=== PATIENT | female | born 1945 | race Asian ===

== ENCOUNTER → 2024-01-24 10:20 | Outpatient (REF) | payer MEDICARE, SELFPAY ==
[2024-01-24 12:40] LABS: ALT (SGPT) 37 U/L (0-35); AST (SGOT) 36 U/L (14-36); Albumin 4.6 g/dl (3.5-5.0); Alkaline Phosphatase 81 U/L (38-126); Blood Urea Nitrogen 14 mg/dl (7-17); Calcium 10.1 mg/dl (8.4-10.2); Carbon Dioxide 27 mmol/L (22-30); Chloride 103 mmol/L (98-107); Glucose 213 mg/dl (70-99); HDL Cholesterol 50 mg/dl; LDL Cholesterol, Calculated 115 mg/dl; Potassium 4.2 mmol/L (3.5-5.1); Sodium 137 mmol/L (135-145); Total Bilirubin 1.1 mg/dl (0.2-1.3); Total Cholesterol 193 mg/dl (50-199); Total Protein 7.6 g/dl (6.3-8.2); Triglyceride 142 mg/dl (10-149); Very Low Density Lipoprotein 28 mg/dl (0-30); eGFR > 60.00
[2024-01-24 13:19] LABS: Microalbumin, Random Urine 3.6 mg/dl (0.6-1.7); Microalbumin/creatinine Ratio 21.1 mg/g
[2024-01-24 14:56] LABS: Glycohemoglobin (HgbA1c) 10.3 % (4.0-5.6)
== END ==
LOC: HWLAB 10:20
PROVIDERS: ATTENDING PHYSICIAN Nurse Practitioner
DX: E11.9 Type 2 diabetes mellitus without complications (principal); R80.9 Proteinuria, unspecified; E78.2 Mixed hyperlipidemia; R79.89 Other specified abnormal findings of blood chemistry
CPT/HCPCS: 36415; 80053; 80061; 82043; 82570; 83036

== ENCOUNTER → 2024-05-01 11:31 | Outpatient (REF) | payer MEDICARE, SELFPAY | LOC: HWLAB 11:31 | PROVIDERS: ATTENDING PHYSICIAN Nurse Practitioner | DX: E11.9 Type 2 diabetes mellitus without complications (principal) | CPT/HCPCS: 83036 ==

== ENCOUNTER → 2024-07-16 12:31 | Outpatient (REF) | payer MEDICARE, SELFPAY | LOC: HWRAD 12:31 | DX: M25.512 Pain in left shoulder (principal); M25.522 Pain in left elbow | CPT/HCPCS: 73030; 73080 ==

== ENCOUNTER → 2024-12-07 10:46 | Outpatient (REF) | payer MEDICARE, SELFPAY ==
[2024-12-07 16:28] LABS: % Basophils 1.1 % (0-2); % Eosinophils 1.2 % (0-6); % Immature Granulocytes 0.4 % (0-0.5); % Lymphocytes 21.1 % (20.5-51.1); % Monocytes 6.9 % (1.7-9.3); % Neutrophils 69.3 % (42.2-75.2); Absolute Basophils 0.1 10^3/uL (0-0.2); Absolute Eosinophils 0.1 10^3/uL (0-0.7); Absolute Lymphocytes 1.7 10^3/uL (1.2-3.4); Absolute Monocytes 0.6 10^3/uL (0.1-0.6); Absolute Neutrophils 5.6 10^3/uL (1.4-6.5); Hematocrit 49.9 % (37.0-47.0); Hemoglobin 16.7 g/dL (12.0-16.0); Mean Corp Hgb Conc. 33.5 g/dL (33.0-37.0); Mean Corpuscular Hgb 28.6 pg (27.0-31.0); Mean Corpuscular Volume 85.6 fL (81.0-99.0); Mean Platelet Volume 12.3 fL (7.4-10.4); Nucleated Red Blood Cells % 0 %; Platelet Count 219 10^3/uL (130-400); Red Blood Cell Count 5.83 10^6/uL (4.20-5.40); Red Cell Dist. Width 14.2 % (11.5-14.5); White Blood Cell Count 8.1 10^3/uL (4.8-10.8)
[2024-12-07 16:37] LABS: ALT (SGPT) 35 U/L (0-35); AST (SGOT) 33 U/L (14-36); Albumin 4.4 g/dl (3.5-5.0); Alkaline Phosphatase 82 U/L (38-126); Blood Urea Nitrogen 20 mg/dl (7-17); Calcium 9.9 mg/dl (8.4-10.2); Carbon Dioxide 21 mmol/L (22-30); Chloride 102 mmol/L (98-107); Glucose 255 mg/dl (70-99); HDL Cholesterol 45 mg/dl; LDL Cholesterol, Calculated 157 mg/dl; Potassium 4.3 mmol/L (3.5-5.1); Sodium 134 mmol/L (135-145); Total Bilirubin 0.8 mg/dl (0.2-1.3); Total Cholesterol 227 mg/dl (50-199); Total Protein 7.7 g/dl (6.3-8.2); Triglyceride 126 mg/dl (10-149); Uric Acid 6.7 mg/dl (2.5-6.2); Very Low Density Lipoprotein 25 mg/dl (0-30); eGFR > 60.00
[2024-12-07 17:04] LABS: Microalbumin, Random Urine 6.2 mg/dl (0.6-1.7); Microalbumin/creatinine Ratio 27.7 mg/g
[2024-12-07 17:06] LABS: CEA 1.34 ng/ml; TSH Reflex To Free T4 3.27 uIU/ml (0.47-4.68)
[2024-12-08 08:28] LABS: Glycohemoglobin (HgbA1c) 8.8 % (4.0-5.6)
== END ==
LOC: HWLAB 10:46
DX: Z85.05 Personal history of malignant neoplasm of liver (principal); E78.2 Mixed hyperlipidemia; M10.9 Gout, unspecified; E11.9 Type 2 diabetes mellitus without complications; R80.9 Proteinuria, unspecified; Z85.038 Personal history of other malignant neoplasm of large intestine
CPT/HCPCS: 36415; 80053; 80061; 82043; 82378; 82570; 83036; 84443; 84550; 85025